=== PATIENT | male | born 1945 | race Hispanic/Latino ===

== ENCOUNTER → 2018-09-07 | Outpatient (CLI) | payer OTHER ==
[~2018-09-07] MED LIST: ACET325T51 PO; BRIMONIDINE 2% OU; FERR-82 PO; ISOS40TA16 PO; LATA2.5D2 OU; LISI-613 PO; LORA10TA7 PO; METF-444 PO; METF-446 PO; METO25TA6 PO; RANI150C4 PO; SIMV20TA6 PO; TAMS0.4C32 PO; WARF-57 PO
== END | disposition home or self-care (01) ==
LOC: SHCH 07:43
PROVIDERS: ATTEND Internal Medicine Cardiovascular Disease
DX: I50.22 Chronic systolic (congestive) heart failure (principal)
CPT/HCPCS: 78481; A9512

== ENCOUNTER → 2018-12-29 | Outpatient (CLI) | payer MEDICARE, OTHER ==
[~2018-12-29] MED LIST changes: +ALBUMIN (HUMAN) 25% 200 ML IV ONE; +ALLO100T PO; +ASPI-1197 PO; -BRIMONIDINE 2% OU; +BUME1TAB17 PO; +CLOP75TA32 PO; +CYAN1000I PO; +DOCU100C33 PO; -ISOS40TA16 PO; -LATA2.5D2 OU; +LIDOCAINE HCL 2% 20ML ONE; -LISI-613 PO; -LORA10TA7 PO; +LUBI24CA2 PO; -METF-444 PO; +METO2.5T2 PO; +METO25 PO; -METO25TA6 PO; +PANT40TA25 PO; +POTA-79 PO; +RANO500T3 PO; -SIMV20TA6 PO; +SPIR25TA PO; +TYL3 PO; -WARF-57 PO; +WARF2TAB57 PO
[2018-12-29 08:34] LABS: BASOPHILS % (AUTO) 0.9 % (0.0-5.0); EOSINOPHILS % (AUTO) 2.9 % (0.0-8.0); HEMATOCRIT 34.1 % (42-54); LYMPHOCYTES % (AUTO) 9.4 % (21.0-51.0); MEAN CORPUSCULAR HEMOGLOBIN 29.9 pg (27.0-33.0); MEAN CORPUSCULAR HGB CONC 32.1 g/dL (32.0-36.0); MEAN CORPUSCULAR VOLUME 93.2 fL (79-99); MONOCYTES % (AUTO) 10.3 % (3.0-13.0); NEUTROPHILS % (AUTO) 76.5 % (40.0-77.0); PLATELET COUNT (AUTO) 251 K/uL (130-400); RED BLOOD CELL COUNT(AUTO) 3.65 MIL/uL (4.50-6.20); RED CELL DISTRIBUTION WIDTH 18.6 % (11.0-15.5); WHITE BLOOD COUNT (AUTO) 4.7 K/uL (4.8-10.8)
[2018-12-29 08:39] LABS: CREATININE 1.2 mg/dL (0.5-1.5); POTASSIUM 4.3 mmol/L (3.5-5.1)
[2018-12-29 08:45] LABS: INR 2.32 (0.85-1.15); PARTIAL THROMBOPLASTIN TIME 45.2 SEC (26.3-35.5)
--- NOTE | 2018-12-29 10:30 | NUR ---
U/S GD PARACENTESIS PROCEDURE PERFORMED BY DR Lore URBANO. PUNCTURE SITE RLQ AND PATIENT TOLERATED PROCEDURE WELL. TOTAL REMOVED 7.6 LITERS OF CLOUDY YELLOW FLUID. ALBUMIN 25% 50 GRAMS IV GIVEN DURING PROCEDURE. SPECIMEN SENT TO LAB. END OF PROCEDURE AT 1000. CATHETER REMOVED AND DRESSING APPLIED. NO BLEEDING NOTED. DISCHARGE INSTRUCTIONS GIVEN TO PATIENT AND VERBALIZED UNDERSTANDING. DISCHARGED VIA AMBULATION AT 1030. AAO X3 WITH NO C/O PAIN.
[2018-12-29 13:16] LABS: GLUCOSE,BODY FLUID 123 mg/dL (1-40)
== END | disposition home or self-care (01) ==
LOC: RAH 07:26
PROVIDERS: ATTEND Family Medicine
DX: R18.8 Other ascites (principal); I13.0 Hypertensive heart and chronic kidney disease with heart failure and stage 1 through stage 4 chronic kidney disease, or unspecified chronic kidney disease; E11.22 Type 2 diabetes mellitus with diabetic chronic kidney disease; I50.33 Acute on chronic diastolic (congestive) heart failure; N18.4 Chronic kidney disease, stage 4 (severe); I48.91 Unspecified atrial fibrillation; Z87.891 Personal history of nicotine dependence; Z85.46 Personal history of malignant neoplasm of prostate; Z83.3 Family history of diabetes mellitus; Z82.49 Family history of ischemic heart disease and other diseases of the circulatory system; Z79.84 Long term (current) use of oral hypoglycemic drugs; Z79.01 Long term (current) use of anticoagulants; Z79.899 Other long term (current) drug therapy
CPT/HCPCS: 36415; 49083; 80048; 82945; 83615; 85025; 85610; 85730; 87071; 87205; 88108; 88305; 96365; A4215; J3490; P9046

== ENCOUNTER → 2019-11-04 | Outpatient (CLI) | payer OTHER ==
[~2019-11-04] MED LIST changes: -ALBUMIN (HUMAN) 25% 200 ML IV ONE; +ALBUMIN (HUMAN) 25% 200 ML IV PRN; -BUME1TAB17 PO; +BUME1TAB7 PO; -LIDOCAINE HCL 2% 20ML ONE
[2019-11-04 09:26] LABS: BASOPHILS % (AUTO) 0.8 % (0.0-5.0); EOSINOPHILS % (AUTO) 2.2 % (0.0-8.0); HEMATOCRIT 31.8 % (42-54); MEAN CORPUSCULAR HEMOGLOBIN 28.6 pg (27.0-33.0); MEAN CORPUSCULAR HGB CONC 30.5 g/dL (32.0-36.0); MEAN CORPUSCULAR VOLUME 93.8 fL (79-99); MONOCYTES % (AUTO) 11.5 % (3.0-13.0); NEUTROPHILS % (AUTO) 74.2 % (40.0-77.0); PLATELET COUNT (AUTO) 323 K/uL (130-400); RED BLOOD CELL COUNT(AUTO) 3.39 MIL/uL (4.50-6.20); RED CELL DISTRIBUTION WIDTH 15.2 % (11.0-15.5); WHITE BLOOD COUNT (AUTO) 6.3 K/uL (4.8-10.8)
[2019-11-04 09:36] LABS: INR 1.58 (0.85-1.15); PROTHROMBIN TIME 16.3 SEC (9.6-11.6)
[2019-11-04 09:39] LABS: ALBUMIN 3.6 g/dL (3.5-5.0); BILIRUBIN,TOTAL 0.9 mg/dL (0.2-1.0); CREATININE 1.3 mg/dL (0.5-1.5); POTASSIUM 4.3 mmol/L (3.5-5.1); TOTAL PROTEIN, SERUM 7.5 g/dL (6.0-8.3)
[2019-11-04 09:45] LABS: % IRON SATURATION 4.4 % (30-44)
--- NOTE | 2019-11-04 11:30 | NUR ---
U/S GD PARACENTESIS PROCEDURE PERFORMED BY DR Cassius RICKETTS. PUNCTURE SITE RLQ AND PATIENT TOLERATED PROCEDURE WELL. TOTAL REMOVED 3 LITERS OF CLOUDY YELLOW FLUID. DID NOT MEET [facility]. SPECIMEN SENT TO LAB. END OF PROCEDURE AT 1100. CATHETER REMOVED AND DRESSING APPLIED. NO BLEEDING NOTED. DISCHARGE INSTRUCTIONS GIVEN TO PATIENT AND VERBALIZED UNDERSTANDING. DISCHARGED VIA AMBULATION AT 1130. AAO X3 WITH NO C/O PAIN.
[2019-11-04 15:42] LABS: APPEARANCE BODY FLUID CLOUDY (CLEAR); COLOR,BODY FLUID DARK YELLOW (LT YELLOW); SPECIMENTYPE,BODY FLUID ASCITES; TOTAL VOLUME,BODY FLUID 3000 mL
[2019-11-04 15:43] LABS: BODY FLUID WBC 168 /cu. mm.
[2019-11-04 15:44] LABS: BODY FLUID RBC 6500 /cu. mm.
[2019-11-04 15:48] LABS: BF LYMPHOCYTE 35 %; BF MESOTHELIAL 32 %; BF OTHER CELLS 2
== END ==
LOC: RAH 08:48
PROVIDERS: ATTEND Internal Medicine Gastroenterology
DX: R18.8 Other ascites (principal)
CPT/HCPCS: 36415; 49083; 80053; 82042; 83540; 83550; 84157; 85025; 85610; 87071; 87205; 89051; A4215

== ENCOUNTER 2020-07-20 15:58 | Emergency (ER) | payer OTHER ==
[~2020-07-20 15:58] MED LIST changes: -ALBUMIN (HUMAN) 25% 200 ML IV PRN; -PANT40TA25 PO; +PANT40TA55 PO
[2020-07-20 16:45] LABS: BASOPHILS % (AUTO) 0.8 % (0.0-5.0); HEMATOCRIT 35.2 % (42-54); LYMPHOCYTES % (AUTO) 12.1 % (21.0-51.0); MEAN CORPUSCULAR HEMOGLOBIN 29.5 pg (27.0-33.0); MEAN CORPUSCULAR HGB CONC 32.7 g/dL (32.0-36.0); MEAN CORPUSCULAR VOLUME 90.3 fL (79-99); NEUTROPHILS % (AUTO) 70.7 % (40.0-77.0); PLATELET COUNT (AUTO) 289 K/uL (130-400); RED CELL DISTRIBUTION WIDTH 15.4 % (11.0-15.5); WHITE BLOOD COUNT (AUTO) 7.1 K/uL (4.8-10.8)
[2020-07-20 16:57] LABS: CREATININE 1.5 mg/dL (0.5-1.5)
[2020-07-20 17:02] LABS: ALBUMIN 3.7 g/dL (3.5-5.0); BILIRUBIN,TOTAL 0.5 mg/dL (0.2-1.0); TOTAL PROTEIN, SERUM 8.2 g/dL (6.0-8.3)
[2020-07-20] MEDS ORDERED: TETANUS/DIPHTHERIA TOXOID [ADULT] 0.5 ML VIAL IM ONE (18:18)
== END 2020-07-20 18:27 | disposition home or self-care (01) ==
LOC: EDH 15:58
DX: S91.111A Laceration without foreign body of right great toe without damage to nail, initial encounter (principal); E11.9 Type 2 diabetes mellitus without complications; I50.9 Heart failure, unspecified; I48.91 Unspecified atrial fibrillation; M19.90 Unspecified osteoarthritis, unspecified site; Z88.0 Allergy status to penicillin; W45.8XXA Other foreign body or object entering through skin, initial encounter; Y93.89 Activity, other specified; Y92.89 Other specified places as the place of occurrence of the external cause; Y99.8 Other external cause status
CPT/HCPCS: 36415; 73660; 80053; 85025; 90471; 90714